=== PATIENT | female | born 1965 ===

== ENCOUNTER 2018-03-12 16:33 | Emergency (ER) | payer SELFPAY ==
[2018-03-12 16:41] VITALS: O2SAT 100
[2018-03-12] MEDS ORDERED: Albuterol 0.083% Inhal Sol (2.5 mg/3 mL) UD INH STA ×2 (17:28→18:47)
[2018-03-12] MEDS ORDERED: Albuterol 0.083% Inhal Sol (2.5 mg/3 mL) UD ONE ×2 (17:47→18:50)
[2018-03-12 17:51] LABS: VENOUS BLOOD GAS BASE EXCESS -0.3 mmol/L (0.0-2.0); VENOUS BLOOD GAS PCO2 28 mmHg (40-60); VENOUS BLOOD GAS PO2 49 mm/Hg (30-55)
[2018-03-12 17:52] LABS: BASO % 0.4 % (0.0-2.0); EOS % 0.2 % (0.0-4.0); HEMOGLOBIN 14.1 g/dL (12.0-16.0); LYMPH # 2.3 K/uL (1.0-4.3); LYMPH % 23.2 % (20.0-40.0); MEAN CELL VOLUME 82.1 fl (81.0-99.0); MEAN CORPUSCULAR HEMOGLOBIN 25.8 pg (27.0-31.0); MEAN CORPUSCULAR HGB CONC 31.5 g/dL (33.0-37.0); MEAN PLATELET VOLUME 9.2 fl (7.2-11.7); MONO # 0.4 K/uL (0.0-0.8); MONO % 3.8 % (0.0-10.0); NEUT # 7.1 K/uL (1.8-7.0); NEUT % 72.4 % (50.0-75.0); NRBC % 0.1 % (0.0-0.0); RBC 5.46 Mil/uL (3.80-5.20); RED CELL DISTRIBUTION WIDTH 14.4 % (11.5-14.5); WHITE BLOOD COUNT 9.7 K/uL (4.8-10.8)
[2018-03-12 17:56] LABS: INR 1.1; PROTHROMBIN TIME 11.7 Seconds (9.8-13.1)
[2018-03-12 18:07] LABS: ALB/GLOB RATIO 1.3 (1.0-2.1); ALBUMIN 4.8 g/dL (3.5-5.0); ALT/SGPT 90 U/L (9-52); AST/SGOT 61 U/L (14-36); BLOOD UREA NITROGEN 12 mg/dl (7-17); CALCIUM 9.8 mg/dL (8.4-10.2); GFR AFRICAN-AMERICAN > 60; GFR NON-AFRICAN AMERICAN > 60
[2018-03-12 18:08] LABS: BLOOD UREA NITROGEN 13 mg/dl (7-17); CALCIUM 9.8 mg/dL (8.4-10.2); GFR AFRICAN-AMERICAN > 60; GFR NON-AFRICAN AMERICAN > 60
[2018-03-12 18:09] LABS: D DIMER < 200 ng/mlDDU (0-230)
[2018-03-12 18:19] LABS: B-TYPE NATRIURETIC PEPTIDE 36.4 pg/ml (0-900)
--- NOTE | 2018-03-12 18:58 | ED PDOC ---
HPI: SOB/CHF/COPD Time Seen by Provider: 03/12/18 17:11 Chief Complaint (Nursing): Chest Pain Chief Complaint (Provider): Shortness of breath History Per: Patient History/Exam Limitations: no limitations Onset/Duration Of Symptoms: Hrs (this morning) Current Symptoms Are (Timing): Still Present Associated Symptoms: denies: Fever, Chills, Chest Pain Additional Complaint(s): Marcella Do is a 52 year old female, with a past medical history of diabetes and seasonal allergies, who presents to the emergency department for evaluation of an acute shortness of breath onset since this morning. Patient states she took an Merna pill for environmental allergies and had a cup of coffee, immediately after she began having difficulty breathing. She denies any history of asthma or other pulmonary problems. Patient had a pulmonary function test in December/2017 which was found to be normal. Per triage note patient was complaining of chest pain but now she is denying having chest pain at any point stating that lungs just feel tight. Patient did not take any medication for symptoms and denies having similar symptoms in the past. She denies any fever, chills, recent illness, travel or hospitalization. No further medical complaints. PMD: Clinic. Past Medical History Reviewed: Historical Data, Nursing Documentation, Vital Signs Vital Signs: Last Vital Signs Temp 98.1 F 03/12/18 21:31 Pulse 82 03/12/18 21:31 Resp 18 03/12/18 21:31 BP 130/76 03/12/18 21:31 Pulse Ox 100 03/12/18 21:31 - Medical History PMH: Diabetes - Surgical History Surgical History: No Surg Hx - Family History Family History: States: Unknown Family Hx - Social History Current smoker - smoking cessation education provided: No Alcohol: None Drugs: Denies - Home Medications Home Medications: Ambulatory Orders Medication Instructions Recorded metFORMIN [glucOPHAGE] 1 tab PO DAILY 02/06/16 Albuterol 0.083% [Albuterol 3 ml IH Q4 PRN #20 neb 03/12/18 Sulfate 3 Ml] Albuterol HFA [Ventolin HFA 90 2 puff IH [id number] #1 inh 03/12/18 mcg/actuation (8 g)] Prednisone [Deltasone] 60 mg PO DAILY 4 Days tablet 03/12/18 - Allergies Allergies/Adverse Reactions: Allergies Allergy/AdvReac Type Severity Reaction Status Date / Time No Known Allergies Allergy Verified 03/12/18 16:36 Review of Systems ROS Statement: Except As Marked, All Systems Reviewed And Found Negative Constitutional: Negative for: Fever, Chills Cardiovascular: Negative for: Chest Pain Respiratory: Positive for: Shortness of Breath Physical Exam - Reviewed Nursing Documentation Reviewed: Yes Vital Signs Reviewed: Yes - Physical Exam Appears: Positive for: No Acute Distress Head Exam: Positive for: ATRAUMATIC, NORMAL INSPECTION, NORMOCEPHALIC Skin: Positive for: Normal Color, Warm, Dry Eye Exam: Positive for: Normal appearance, EOMI, PERRL ENT: Positive for: Normal ENT Inspection, Pharynx Is (clear, no swelling). Negative for: Pharyngeal Erythema, Tonsillar Exudate, Tonsillar Swelling Neck: Positive for: Painless ROM Cardiovascular/Chest: Positive for: Regular Rate, Rhythm. Negative for: Murmur Respiratory: Positive for: Normal Breath Sounds. Negative for: Respiratory Distress Gastrointestinal/Abdominal: Positive for: Normal Exam (obese), Soft. Negative for: Tenderness Back: Positive for: Normal Inspection Extremity: Positive for: Normal ROM (upper and lower extremities), Other ( normal distal pulses). Negative for: Calf Tenderness, Deformity, Swelling Neurologic/Psych: Positive for: Alert, Oriented. Negative for: Motor/Sensory Deficits - Laboratory Results Result Diagrams: 03/12/18 17:40 03/12/18 17:40 - ECG O2 Sat by Pulse Oximetry: 100 (RA) Pulse Ox Interpretation: Normal Medical Decision Making Medical Decision Making: Time: 17:11 Initial Impression: Cardiac work up vs pulmonary etiology Initial Plan: --VBG --EKG --BNP --BMP --Beta-HCG, Quantitative --CMP --Magnesium --Phosphorus --Troponin I --CBC w/ differential --D Dimer --PTT --PT --Chest portable [RAD] --Duoneb 2.5 mg INH --Duoneb 2.5 mg INH --Reevaluation 19:00 -Patient will be signed out to Dr. Olsen, pending CXR and symptom resolution. -At this point labs reviewed and showed no clinical significant abnormalities. Pt with normal labs including negative cardiac enzyme, undetectable D-Dimer and BNP. CXR pending. Pt reports mild improvement with nebulizer treatment. Pt most likely discharge home or admission for observation. ----- Scribe Attestation: Documented by Nicola Mendez, acting as a scribe for Chata Escalona MD. Provider Scribe Attestation: All medical record entries made by the Scribe were at my direction and personally dictated by me. I have reviewed the chart and agree that the record accurately reflects my personal performance of the history, physical exam, medical decision making, and the department course for this patient. I have also personally directed, reviewed, and agree with the discharge instructions and disposition. Disposition - Clinical Impression Clinical Impression: Shortness of breath, Bronchitis - Patient ED Disposition Is Patient to be Admitted: Transfer of Care - Disposition Referrals: [facility] [Outside] Disposition: Transfer of Care (Pt with normal labs including negative cardiac enzyme, undetectable D-Dimer and BNP. CXR pending. Pt reports mild improvement with nebulizer treatment. Pt most likely discharge home or admission for observation.) Disposition Time: 19:11 Condition: GOOD Additional Instructions: Take your medications as instructed. Follow up with your PCP in 2-3 days. Return for worsening. Prescriptions: Albuterol HFA [Ventolin HFA 90 mcg/actuation (8 g)] 2 puff IH [id number] #1 inh Albuterol 0.083% [Albuterol Sulfate 3 Ml] 3 ml IH Q4 PRN #20 neb PRN Reason: Wheezing Prednisone [Deltasone] 60 mg PO DAILY 4 Days tablet Instructions: Acute Bronchitis Forms: [employer] (Slovenian) Print Language: LATVIAN
--- NOTE | 2018-03-12 19:13 | ED PDOC ---
- Laboratory Results Result Diagrams: 03/12/18 17:40 03/12/18 17:40 - ECG O2 Sat by Pulse Oximetry: 100 (RA) - Radiology X-Ray: Interpreted by Me, Viewed By Me X-Ray Interpretation: No Acute Disease - Progress Re-evaluation Time: 21:00 Condition: Re-examined, Improved Medical Decision Making Medical Decision Makin:00 -Patient endorsed to provider by Dr. Escalona, pending chest x-ray and resolution of symptoms. 20:03 -Upon reevaluation, patient is still feeling short of breath. She reports a mild cough and difficulty breathing but denies chest pain. Will give another treatment of duoneb and prednisone, and reassess again. Disposition Doctor Will See Patient In The: Office Counseled Patient/Family Regarding: Studies Performed, Diagnosis, Need For Followup - Clinical Impression Clinical Impression: Shortness of breath, Bronchitis - POA Present On Arrival: None - Disposition Referrals: [facility] [Outside] Disposition: Routine/Home Disposition Time: 21:30 Condition: GOOD Additional Instructions: Take your medications as instructed. Follow up with your PCP in 2-3 days. Return for worsening. Prescriptions: Albuterol HFA [Ventolin HFA 90 mcg/actuation (8 g)] 2 puff IH [id number] #1 inh Albuterol 0.083% [Albuterol Sulfate 3 Ml] 3 ml IH Q4 PRN #20 neb PRN Reason: Wheezing Prednisone [Deltasone] 60 mg PO DAILY 4 Days tablet Instructions: Acute Bronchitis Forms: [employer] (Bulgarian) Print Language: GUINEAN
[2018-03-12] MEDS ORDERED: Albuterol-Ipratrop 3 mg / 0.5 (3 ml) UD INH STA (19:41)
[2018-03-12] MEDS ORDERED: Albuterol-Ipratrop 3 mg / 0.5 (3 ml) UD ONE (19:43)
[2018-03-12 21:32] VITALS: BP 130/76; PULSE 82; RESP 18; TEMP 98.1
--- NOTE | 2018-03-13 09:29 | CARD ---
APPROVED REPORT Date of service: 03/12/2018 <Conclusion> Normal sinus rhythm Possible Left atrial enlargement Incomplete right bundle branch block Borderline ECG
--- NOTE | 2018-03-13 12:34 | RAD ---
Date of service: 03/12/2018 HISTORY: possible admission COMPARISON: 11/07/2010 FINDINGS: LUNGS: No active pulmonary disease. PLEURA: No significant pleural effusion identified, no pneumothorax apparent. CARDIOVASCULAR: Normal. OSSEOUS STRUCTURES: No significant abnormalities. VISUALIZED UPPER ABDOMEN: Normal. OTHER FINDINGS: None. IMPRESSION: No active disease.
== END 2018-03-12 21:36 | disposition home or self-care (01) ==
LOC: H.ER 16:33
DX: J40 Bronchitis, not specified as acute or chronic (principal); R06.02 Shortness of breath; E11.9 Type 2 diabetes mellitus without complications; J44.9 Chronic obstructive pulmonary disease, unspecified; Z79.84 Long term (current) use of oral hypoglycemic drugs